=== PATIENT | male | born 2000 | race Caucasian/White ===

== ENCOUNTER 2024-05-02 15:11 | Emergency (ER) | payer SELFPAY ==
--- NOTE | 2024-05-02 15:15 | ED_ITS ---
Discharge Plan Disposition Patient Disposition: Home, Self-Care Condition: Good Prescriptions Prescriptions: No Action gentamicin-prednisolone 0.3-1 % drops,suspension 2 drp OPHTHALMIC Q4H Referrals Follow up/Referrals: Provider,Referral, [Primary Care Provider] - See instructions Activity Restrictions/Add. Instructions Additional Instructions/Restrictions: As we discussed, your stitches will absorb on their own. Please monitor for any drainage of pus, redness of your skin, or other signs concerning for infection. Please return with any new or worsening symptoms. Please keep your toe clean and dry until the wound starts to close up. Clinical Impressions Clinical Impression: Laceration of toe Qualifiers: Encounter type: initial encounter Toe: great toe Damage to nail status: without damage Foreign body presence: without foreign body Laterality: left Qualified Code(s): S91.112A - Laceration without foreign body of left great toe without damage to nail, initial encounter Instructions Patient Instructions: DI for Laceration Repair Print Language Print Language: Nepali Discharge ED Provider: Deangelo Mchugh General Adult HPI General Chief complaint: Extremity Injury, Lower Stated complaint: AO 05/02/24 1400 laceration left great toe Time Seen by Provider: 05/02/24 15:15 History of Present Illness HPI narrative: The patient presents with a chief complaint of a laceration on his toe sustained from a chainsaw accident. The incident occurred at approximately 2:00 PM while the patient was cutting a tree for work. The chainsaw did not activate the brake upon impact, resulting in the injury. The patient was wearing a steel-toed boot and two pairs of socks at the time of the accident, which may have mitigated the severity of the injury. The patient denies any numbness or tingling in the foot and is able to wiggle the affected toe. He reports no known medical conditions and is not currently taking any medications. The patient is unsure of his tetanus vaccination status, stating he has not had one since he was younger. He traveled from [facility] to seek treatment, and his journey was delayed due to rain. 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 The chainsaw cut behind the steel toe of the boot. Please note that above description of symptoms, in this electronic medical record under categorization of recalled from ER triage doctor by RN are reflective of an initial nursing assessment, however, is not reflective of my full history and physical exam that was personally taken and clarified. Consequentially, this preceding description of symptoms, which may include the patient's categorized chief complaint in the EMR, do not reflect my personal clinical impression, and the ultimate description of history of present illness and patient stated complaints should be deferred to this section of the note. Unless stated otherwise or congruent with this section of the note, additional signs, symptoms, or incongruence should be interpreted as inaccurate with my clinical impression. Related Data Home Medications ?Medication ?Instructions ?Recorded ?Confirmed gentamicin 0.3 %-prednisolone 1 % 2 drp ophthalmic (eye) Q4H 11/23/20 11/23/20 eye drops,suspension Allergies Allergy/AdvReac Type Severity Reaction Status Date / Time From CEFZIL Allergy Intermediate I-RASH Uncoded 11/23/20 08:53 SULFA (SULFONAMIDE) Allergy Intermediate I-RASH Uncoded 11/23/20 08:53 PFSH PFSH Disclaimer: The information contained in this section may have been updated after the patient was seen, as this information can be updated by other users. Social History Smoking Status: Current some day smoker alcohol intake: never substance use type: denies use current occupational status: employed Travel in the last 8 weeks: None household members: family ROS Obtained: Yes other As per HPI Physical Exam General General appearance: alert and in no apparent distress Head Head exam: atraumatic and normocephalic Eye Eye exam: Present normal appearance Neck Neck exam: Present normal inspection Chest Chest inspection: Present normal inspection and symmetric chest wall rise Respiratory Respiratory exam: Present normal lung sounds bilaterally; Absent respiratory distress Cardiovascular Cardiovascular exam: Present regular rate and normal rhythm Abdominal Exam Abdominal exam: Present soft Neurological Exam Neurological exam: Present alert and oriented X3 Psychiatric Psychiatric exam: Present normal affect and normal mood Skin Skin exam: Present warm and dry Other Other exam information: Multiple lacerations to top of great toe on left, hemostatic, no gross contamination, distally neurovascularly intact, no injury elsewhere. Medical Decision Making Medical Records Medical records reviewed: Yes I reviewed the patient's medical records. George Inquiry Pt receiving controlled substance: No Vital Signs: 05/02/24 15:19 05/02/24 15:45 05/02/24 17:31 Temperature 98.5 F 98.4 F Temperature Source Oral Oral Pulse Rate 85 82 Pulse Rate [Right Brachial] 110 H Respiratory Rate 16 18 Blood Pressure 124/68 131/78 Blood Pressure [Right Arm] 147/86 H Blood Pressure Mean [Right Arm] 106 Blood Pressure Source Automatic Cuff Blood Pressure Source [Right Arm] Automatic Cuff Blood Pressure Position [Right Arm] Sitting 02 Sat by Pulse Oximetry 99 98 Oxygen Delivery Method Room Air Room Air Orders (Tests/Meds): ED MEDICATIONS Discontinued Medications Generic Name Dose Route Start Last Admin Trade Name Freq PRN Reason Stop Dose Admin Tetanus/Reduced Diphtheria/Acell Pertussis 0.5 ml 05/02/24 15:28 05/02/24 16:41 Tet/Diphth/Pert-Adult 0.5ml Syringe IM 05/02/24 15:29 0.5 ml .ONCE ONE Administration ORDERS Category Date Time Status XR foot LT min 3V Stat Exams 05/02/24 15:26 Completed Medical Decision Narrative: Patient with history and exam per above presenting for evaluation of laceration Diagnoses considered include tetanus exposure, fracture, foreign body, no clinical evidence of vascular injury or nerve injury ED workup and treatment included: ED MEDICATIONS Discontinued Medications Generic Name Dose Route Start Last Admin Trade Name Freq PRN Reason Stop Dose Admin Tetanus/Reduced Diphtheria/Acell Pertussis 0.5 ml 05/02/24 15:28 05/02/24 16:41 Tet/Diphth/Pert-Adult 0.5ml Syringe IM 05/02/24 15:29 0.5 ml .ONCE ONE Administration ORDERS Category Date Time Status XR foot LT min 3V Stat Exams 05/02/24 15:26 Completed Imaging was independently visualized and interpreted by me, significant for no acute findings Please refer to radiology report for full details. My clinical impression at this time is most consistent with toe laceration, this was repaired with sutures without complication after administration of lidocaine. I discussed my clinical impression with patient and answered all questions. At this time, the evidence for any other entities in the differential is insufficient to warrant any further testing or ED observation. This was explained to the patient. The patient was advised that persistent or worsening symptoms require further evaluation. Procedures Laceration Laceration 1: Site: other (Toe) Side (If applicable): left Size (cm): 2 Description: linear Depth: simple, single layer Local Anesthetic: lidocaine 1% Amount of anesthesia used (mL): 3 Pre-repair: wound explored and irrigated extensively Skin layer closed with: vicryl Size (cm): 3-0 Number of sutures: 4 Technique: simple, interrupted Critical Care Critical Care Time Critical Care Time: No
[2024-05-02 15:19] VITALS: BP 147/86; PULSE 110; RESP 16; TEMP 36.9; O2SAT 99; BMI 19.5
--- NOTE | 2024-05-02 15:26 | XR_ITS ---
FINAL REPORT CLINICAL HISTORY: chainshaw laceration to great toe FINDINGS: LEFT FOOT Three views of the left foot demonstrate no acute fracture or dislocation. The visualized joint spaces are normally aligned. The soft tissues are unremarkable. IMPRESSION: No acute bony abnormality. Reviewed, Interpreted and Dictated by Omari Cantu III, MD Transcribed by Alisia Swartz Authenticated and [facility]
[2024-05-02 15:45] VITALS: BP 124/68; PULSE 85; O2SAT 98
[2024-05-02] MEDS: TET/DIPHTH/PERT-ADULT 0.5ML SYRINGE 0.5 ML IM (16:41)
[2024-05-02 17:31] VITALS: BP 131/78; PULSE 82; RESP 18; TEMP 36.9; O2SAT 98
== END 2024-05-02 17:39 | disposition home or self-care (01) ==
PROVIDERS: Emergency Provider Emergency Medicine
DX: S91.112A Laceration without foreign body of left great toe without damage to nail, initial encounter (principal); W29.3XXA Contact with powered garden and outdoor hand tools and machinery, initial encounter; Y92.9 Unspecified place or not applicable; F17.200 Nicotine dependence, unspecified, uncomplicated
CPT/HCPCS: 12001; 73630; 90471; 90715; 99283